=== PATIENT | female | born 1990 | race Caucasian/White ===

== ENCOUNTER 2016-11-21 18:34 | Emergency (ER) ==
--- NOTE | 2016-11-21 20:44 | PROVIDER DOCUMENTATION ---
HPI-General Adult - General Chief Complaint: General Adult Stated Complaint: SOB/UPPER BACK PAIN Time Seen by Provider: 11/21/16 20:15 Source: patient Allergies/Adverse Reactions: Patient Allergies Allergy/AdvReac Type Severity Reaction Status Date / Time No Known Allergies Allergy Unverified 08/24/16 10:48 - History of Present Illness -Gen Adult Nature of Presenting Problems: 26 y/o WF c/o back pain, esophagus pain, sore throat, SOB x 2 weeks. States intermittent, but denies any known causes. States hasn't come to the ED because thought it would get better on it's own. Denies any injury, recent trauma, no CP. Review of Systems - Adult - REVIEW OF SYSTEMS - ADULT Constitutional: reports: no symptoms reported. denies: chills, fever Eyes: reports: no symptoms reported. denies: blurred vision, double vision Ears, Nose, Mouth & Throat: reports: see HPI, throat pain. denies: ear pain, nose pain Cardiovascular: reports: no symptoms reported. denies: chest pain, palpitations Respiratory: reports: see HPI, shortness of breath. denies: cough, wheezing Gastrointestinal: reports: no symptoms reported. denies: nausea, vomiting Genitourinary: reports: no symptoms reported. denies: dysuria, frequency Musculoskeletal: reports: see HPI, back pain. denies: joint pain, joint swelling Integumentary: reports: no symptoms reported. denies: nail changes, rash Neurological: reports: no symptoms reported. denies: numbness, paresthesia Psychiatric: reports: no symptoms reported Endocrine: reports: no symptoms reported. denies: cold intolerance, heat intolerance Hematologic/Lymphatic: reports: no symptoms reported. denies: easy bruising, prolonged bleeding Allergic/Immunologic: reports: no symptoms reported All Other Systems: Reviewed and Negative Past History - Adult - PAST MEDICAL HISTORY-ADULT Review of Records: reports: Nursing Assessment Review, Medications Reviewed Major Childhood Illnesses: reports: denies history Cardiovascular: reports: denies history Respiratory: reports: denies history Gastrointestinal: reports: denies history Musculoskeletal: reports: denies history Endocrine/Immune: reports: denies history - PRIOR SURGERIES/PROCEDURES Surgical/Procedure History: reports: none - IMMUNIZATION STATUS Childhood Immunizations: See Nurse Assessment Flu Vaccine: See Nurse Assessment - SOCIAL HISTORY Smoking: denies Physical Exam-General - PHYSICAL EXAM-ADULT Initial Vital Signs Reviewed: Yes - CONSTITUTIONAL General Appearance: alert, mild distress - EYES Eyes: pink conjunctivae - HEAD, EARS, NOSE, MOUTH & THROAT HENMT: normocephalic/atraumatic, moist mucous membranes, pharynx normal - NECK Neck: full range of motion, supple, normal inspection. negative: lymphadenopathy, tender lateral, tender midline, thyromegaly - RESPIRATORY Respiratory: lungs clear, normal breath sounds. negative: crackles, rales, rhonchi, stridor, wheezing - CARDIOVASCULAR Cardiovascular: regular rate, rhythm. negative: bradycardia, tachycardia - MUSCULOSKELETAL Back Exam: no CVA tenderness, no vertebral tenderness, other (TTP upper back, bilat) Extremity: normal gait, normal inspection. negative: abnormal NV exam - SKIN Integumentary: normal color, normal turgor, warm/dry - NEUROLOGIC Neurologic: negative: aphasia - PSYCHIATRIC Psych/Mental Status: normal mood/affect, normal thought content, normal thought process, oriented x 3 Progress - PLAN OF CARE/RESULTS Progress/Plan/Lab Results: Laboratory Tests 11/21/16 20:55 Urine Test NEGATIVE Orders Category Date Time Status CHEST-2 VIEWS [RAD] Stat Exams 11/21/16 20:37 Completed NECK AP AND/OR LAT SOFT TISSUE [RAD] Stat Exams 11/21/16 20:39 Completed TEST-URINE [PREG] Stat Lab 11/21/16 20:55 Completed Ketorolac [Toradol] Med 11/21/16 22:38 Discontinued 60 mg IM NOW ONE Methocarbamol [Robaxin] Med 11/21/16 22:38 Discontinued 500 mg PO NOW ONE EKG [EKG] Stat Ther 11/21/16 20:38 Draft Vital Signs Temp Pulse Resp BP Pulse Ox 11/21/16 22:47 98.1 F 80 18 109/68 100 11/21/16 18:39 98 F 83 18 110/71 100 No Known Allergies Allergy (Unverified 08/24/16 10:48) Famotidine [Pepcid] 20 mg PO DAILY #20 tablet 11/21/16 Ketorolac [Toradol] 10 mg PO Q6H PRN PRN #30 tablet 11/21/16 Methocarbamol [Robaxin] 500 mg PO BID #30 tablet 11/21/16 ACUTE PHARYNGITIS, UNSPECIFIED (11/21/16) CERVICALGIA (11/21/16) PAIN IN THORACIC SPINE (11/21/16) SHORTNESS OF BREATH (11/21/16) STRAIN OF MUSCLE, FASCIA AND TENDON OF LOWER BACK, INIT (11/21/16) Discussed results and f/u with pt. - XRAY 1 XRAY Study: Chest XRAY Interpretation: No PNA 2 XRAY Study: other (neck) Impression: Normal Departure - Departure Time of Disposition Order: 22:38 DIAGNOSIS: Neck pain Back strain Qualifiers: Encounter type: initial encounter Qualified Code(s): S39.012A - Strain of muscle, fascia and tendon of lower back, initial encounter Disposition: HOME Certified Medical Emergency: Emergent Condition: Stable Additional Instructions: Take medications as directed. Follow up with PCP in 3 days for recheck. Drink plenty of fluids. ED Follow Up Instructions: You have been treated by a care provider in the Emergency Department. These instructions are being provided to you so you can have an understanding of how to care for yourself upon discharge. Upon discharge from the Emergency Department, you are responsible for making arrangements for follow-up care by a physician of your choice. Take all prescribed medications as directed. Return to the Emergency Department immediately for any new or worsening symptoms. You may call the Physician Referral phone number at [phone] to obtain a list of Physicians who are taking new patients. Prescriptions: Famotidine [Pepcid] 20 mg PO DAILY #20 tablet Methocarbamol [Robaxin] 500 mg PO BID #30 tablet Ketorolac [Toradol] 10 mg PO Q6H PRN PRN #30 tablet PRN Reason: Pain Referrals: Maurice Padilla MD [STAFF PHYSICIAN] - None,PCP [Primary Care Provider] - Forms: Return to School/Parent Work Instructions: Famotidine tablets or gelcaps, Mid-Back Strain with Rehab- [facility], Ketorolac tablets, Methocarbamol tablets Attestation - Physician/ Mid-level Attestation Patient care was provided by Mid-level provider (MOBILE PHONE SALESPERSON/PA):: Yes Mid-level provider:: Elena Nevarez Mid-level documentation review:: The Mid-level provider documentation, treatment plan and medical decision making was reviewed by the physician who agrees with all treatment and medical decision making by the MLP.
--- NOTE | 2016-11-21 21:13 | ED EKG INTERP ---
EKG Interpretation - EKG Time of EKG reading by physician:: 21:05 EKG Read and Signed by:: Jose Blake EKG Interpretation (*Must complete 3 of following elements*): Normal Rate: 84 Rhythm: sinus with sinus arrhythmia [place]: normal QRS: normal CO Interval: normal ST Wave: normal Comments: normal ECG Attestation - Scribe Verification/Attestation Scribe:: Apolinar Escobar Acting as Scribe for:: Jose Blake Scribe documention review:: This chart was documented by a scribe and accurately reflects the service the provider performed and the decisions made by the provider.
[2016-11-21] MEDS ORDERED: ROBAXIN PO ONE (22:38)
[2016-11-21] MEDS ORDERED: TORADOL IM ONE (22:38)
[2016-11-21 22:47] VITALS: BP 109/68
--- NOTE | 2016-11-22 05:23 | EKG Report ---
Test Performed on : 11/21/2016 9:05:15 PM Test Reason : [id number] Blood Pressure : / mmHG Vent. Rate : 084 BPM Atrial Rate : 084 BPM P-R Int : 154 ms QRS Dur : 070 ms QT Int : 362 ms P-R-T Axes : 052 051 055 degrees QTc Int : 427 ms Normal sinus rhythm. with sinus arrhythmia. Normal ECG No previous ECGs available Unconfirmed Result
--- NOTE | 2016-11-22 11:20 | Diag Imaging Result Document ---
PROCEDURE NAME: CHEST-2 VIEWS - 11/21/2016 CHEST, TWO VIEWS: INDICATION: Shortness of breath. FINDINGS: The cardiomediastinal silhouette is within normal limits. The pulmonary vasculature is not congested. No infiltrates or effusions are identified. No pneumothorax is noted. IMPRESSION: No acute cardiopulmonary abnormality.
--- NOTE | 2016-11-22 11:21 | Diag Imaging Result Document ---
PROCEDURE NAME: NECK AP AND/OR LAT SOFT TISSUE - 11/21/2016 NECK SOFT TISSUE, TWO VIEWS: INDICATION: Throat pain for 2 weeks. FINDINGS: There is no prevertebral soft tissue swelling. The epiglottis appears normal. No hypopharyngeal distention. IMPRESSION: No acute abnormalities.
== END 2016-11-21 22:59 | disposition home or self-care (01) ==
LOC: P.ED 18:34
DX: M54.2 Cervicalgia (principal); S39.012A Strain of muscle, fascia and tendon of lower back, initial encounter; R06.02 Shortness of breath; M54.6 Pain in thoracic spine; J02.9 Acute pharyngitis, unspecified
CPT/HCPCS: 70360; 71020; 81025; 93005; 99283; J1885